=== PATIENT | female | born 1965 | race Caucasian/White ===

== ENCOUNTER 2017-10-29 13:58 | Emergency (ER) | payer OTHER ==
[2017-10-29 14:20] VITALS: TEMP 97.8; BMI 30.7
--- NOTE | 2017-10-29 14:43 | PDOC ---
History of Present Illness - General Chief Complaint: Pain, Acute Stated Complaint: SIDE PAIN/RIGHT LEG PAIN/HEAD PAIN Time Seen by Provider: 10/29/17 14:42 - History of Present Illness Initial Comments: 10/29/17 14:43 Ms. Colon is a 52 yo female w/ pmh of thyroidectomy 2/2 cancer, arthritis, hypothyroidism, hysterectomy, COPD, pacemaker, migraines, chronic back pain, and fibroids who presents for evaluation after she reportedly tripped over the cat and fell down hitting her head on Friday. She reports having increasing head pain since this time that she says is all throughout her head. She also reportedly vomited from the pain yesterday. The patient denies chest pain, shortness of breath, headache and dizziness. Denies fever, chills, diarrhea and constipation. Denies dysuria, frequency, urgency and hematuria. Allergies: Penicillins, Sulfa drugs Past History - Past Medical History Allergies/Adverse Reactions: Allergies Allergy/AdvReac Type Severity Reaction Status Date / Time Penicillins Allergy Severe anaphylaxis Verified 10/29/17 14:15 Sulfa (Sulfonamide Allergy Severe anaphylaxis Verified 10/29/17 14:15 Antibiotics) [Sulfa(Sulfonamide Antibiotics)] Home Medications: Ambulatory Orders Budesonide/Formoterol Fumarate [Symbicort 160-4.5 Mcg Inhaler] 2 inh IN BID Montelukast Na [Singulair -] 10 mg PO HS 12/18/12 Olmesartan/Hydrochlorothiazide [Benicar Hct 20-12.5 mg Tablet] 1 each PO DAILY 12/18/12 Oxycodone HCl/Acetaminophen [Percocet 10-325 mg Tablet] 1 tab PO Q8H PRN #9 tablet 05/14/13 levoFLOXacin [Levaquin -] 500 mg PO DAILY 07/24/13 Alprazolam [Xanax -] 0.5 mg PO TID 07/25/13 Meclizine HCl [Antivert -] 25 mg PO TID PRN 07/25/13 Topiramate [Topamax -] 25 mg PO BID 07/25/13 Acetaminophen/Caffeine/Butalb [Fioricet -] 1 each PO Q6H PRN #12 tablet Cabergoline [Cabergoline] 5 mg PO BID 07/26/13 Levothyroxine [Synthroid -] 224 mcg PO DAILY@0700 #0 tablet 07/26/13 Anemia: No Asthma: Yes Cancer: Yes (THYROID) Cardiac Disorders: Yes (PACEMAKER) CVA: No COPD: Yes CHF: No Dementia: No Diabetes: No GI Disorders: No Disorders: No HTN: Yes Hypercholesterolemia: No Liver Disease: No Seizures: No Thyroid Disease: Yes (H/O THYROID CA,THYROIDECTOMY AND RADIAACTIVE IODINE THERAPY,ON SYNTHROID) Other medical history: SCIATICA - Surgical History Abdominal Surgery: No Appendectomy: No Cardiac Surgery: Yes (pacemaker placement) Cholecystectomy: No Lung Surgery: No Neurologic Surgery: No Orthopedic Surgery: No - Suicide/Smoking/Psychosocial Hx Smoking Status: Yes Smoking History: Current every day smoker Have you smoked in the past 12 months: Yes Number of Cigarettes Smoked Daily: 20 Information on smoking cessation initiated: No 'Breaking Loose' booklet given: 07/25/13 Hx Alcohol Use: No Drug/Substance Use Hx: Yes (none since 04/2013) Substance Use Type: Marijuana Hx Substance Use Treatment: No Review of Systems - Review of Systems Comments:: 10/29/17 14:59 GENERAL/CONSTITUTIONAL: No fever or chills. No weakness. HEAD, EYES, EARS, NOSE AND THROAT: +Headache since fall as described. No change in vision. No ear pain or discharge. No sore throat. CARDIOVASCULAR: No chest pain or shortness of breath RESPIRATORY: No cough, wheezing, or hemoptysis. GASTROINTESTINAL: No nausea, vomiting, diarrhea or constipation. GENITOURINARY: No dysuria, frequency, or change in urination. MUSCULOSKELETAL: +Long standing chronic leg/back pain for which she takes Percocet 10mg's. SKIN: No rash NEUROLOGIC: No headache, vertigo, loss of consciousness, or change in strength/ sensation. ENDOCRINE: No increased thirst. No abnormal weight change HEMATOLOGIC/LYMPHATIC: No anemia, easy bleeding, or history of blood clots. ALLERGIC/IMMUNOLOGIC: No hives or skin allergy. *Physical Exam - Vital Signs Last Vital Signs Temp Pulse Resp BP Pulse Ox 97.8 F 80 19 126/91 97 10/29/17 14:16 10/29/17 14:16 10/29/17 14:16 10/29/17 14:16 10/29/17 14:16 - Physical Exam Comments: 10/29/17 15:01 GENERAL: Awake, alert, and fully oriented, in no acute distress HEAD: No signs of trauma, normocephalic, atraumatic EYES: PERRLA, EOMI, sclera anicteric, conjunctiva clear ENT: Auricles normal inspection, hearing grossly normal, nares patent, oropharynx clear without exudates. Moist mucosa NECK: Normal ROM, supple, no lymphadenopathy, JVD, or masses LUNGS: No distress, speaks full sentences, clear to auscultation bilaterally HEART: Regular rate and rhythm, normal S1 and S2, no murmurs, rubs or gallops, peripheral pulses normal and equal bilaterally. ABDOMEN: Soft, nontender, normoactive bowel sounds. No guarding, no rebound. No masses EXTREMITIES: Normal inspection, Normal range of motion, no edema. No clubbing or cyanosis. NEUROLOGICAL: Cranial nerves II through XII grossly intact. Normal speech, normal gait, no focal sensorimotor deficits SKIN: Warm, Dry, normal turgor, no rashes or lesions noted. Medical Decision Making - Medical Decision Making 10/29/17 15:36 Ms. Colon is a 52 yo female w/ pmh as proscribed who presents for evaluation of headache post fall as described - denies LOC. Upon chart check patient revealed to have a neck CT 2 days ago for neck pain. When questioned about this patient confirmed and reports that she had forgotten the exact dates. 10/29/17 16:49 No focal deficits noted. Head CT ordered to r/o acute injury post fall. 10/29/17 18:[address] negative for acute injury. Oral medication given for possible migraine as patient now relating symptoms to her prior migraines. Discharging patient to home w/ instructions to follow-up as needed for further pain. Migraine prophylaxis / treatment discussed and patient will follow-up with Neurologist for further evaluation. *DC/Admit/Observation/Transfer Diagnosis at time of Disposition: Headache Qualifiers: Headache type: unspecified Headache chronicity pattern: unspecified pattern Intractability: not intractable Qualified Code(s): R51 - Headache - Discharge Dispostion Disposition: HOME - Referrals Referrals: Karl Curry [Primary Care Provider] - Baljinder Yanez MD [Staff Physician] - - Patient Instructions Printed Discharge Instructions: DI for Migraine Additional Instructions: Please return if any increase in pain or pain not controllable with over the counter medications. Follow-up with neurology as discussed for further evaluation. If you are unable to get in contact with them, please use attached information to contact Dr. Yanez as needed. - Post Discharge Activity
--- NOTE | 2017-10-29 14:47 | PDOC ---
Attending Attestation - HPI HPI: 10/29/17 16:04 The patient is a 52 year old female with history of thyroid CA s/p thyroidectomy , s/p pacemaker, COPD, who presents to the ED complaining of 2 days of diffuse headache s/p fall. She states she fell 2 days ago and has had persistent pain since then wih one episode of vomiting 2 days ago. Documentation prepared by Tamar Martinez, acting as phlebotomist medical lab assistant for Andre Lazaro MD. <Tamar Martinez - Last Filed: 10/29/17 16:12> - Resident Resident Name: Tha Saenz - ED Attending Attestation I have performed the following: I have examined & evaluated the patient, The case was reviewed & discussed with the resident, I agree w/resident's findings & plan, Exceptions are as noted - Physicial Exam PE: 10/29/17 16:48 Patient is awake and alert, afebrile, nontoxic appearing Normocephalic, atraumatic PERRLA, EOMI cta rrr No focal neurological deficits Gait-stable - Medical Decision Making 10/29/17 16:49 Patient is a 52-year-old female with multiple comorbidities, chronic pain syndrome, who presents with a headache status post fall 3 days previously. patient denies LOC. In the ER, patient is hemodynamically stable, nontoxic appearing, without focal neurological deficits. Will obtain CT of head to rule out intracranial pathology. If no acute issues, we'll discharge. <Andre Lazaro - Last Filed: 10/29/17 16:50>
[2017-10-29] MEDS ORDERED: ACETAMINOPHEN 500 MG TABLET (FP) PO ONE (15:35)
[2017-10-29] MEDS ORDERED: METOCLOPRAMIDE HCL 10 MG TABLET (FP) PO ONE (18:30)
[2017-10-29 18:58] VITALS: BP 122/58; PULSE 75
== END 2017-10-29 18:58 | disposition home or self-care (01) ==
LOC: JER 13:58
DX: R51 Headache (principal); W01.0XXA Fall on same level from slipping, tripping and stumbling without subsequent striking against object, initial encounter; Y93.K1 Activity, walking an animal; Y92.410 Unspecified street and highway as the place of occurrence of the external cause
CPT/HCPCS: 70450-TC; 84703; 99281-25

== ENCOUNTER 2021-10-24 10:46 | Inpatient (IN) | payer OTHER ==
[2021-10-24 14:19] LABS: EOS % 5.6 % (0-4.5); HEMATOCRIT 41.7 % (32.4-45.2); HEMOGLOBIN 13.7 GM/dL (10.7-15.3); LYMPH % 44.1 % (8-40); MCH 29.4 pg (25.7-33.7); MCHC 32.8 g/dl (32.0-36.0); MEAN CELL VOLUME 89.6 fl (80-96); MEAN PLT VOLUME 7.7 fl (7.5-11.1); MONO % 7.3 % (3.8-10.2); PLATELET COUNT 259 10^3/uL (134-434); RBC 4.65 M/mm3 (3.60-5.2); RDW 15.1 % (11.6-15.6); WHITE BLOOD COUNT 5.6 K/mm3 (4.0-10.0)
[2021-10-24 14:46] LABS: EPI CELLS 12 /uL (0-25.1); HYALINE CASTS 1 /uL (0-3.1); PH,URINE 7.5 (5.0-8.0); URINE APPEARANCE CLOUDY; URINE BACTERIA >9,000 /uL (0-1359); URINE BILIRUBIN NEGATIVE (NEGATIVE); URINE COLOR YELLOW; URINE GLUCOSE (UA) NEGATIVE (NEGATIVE); URINE KETONE NEGATIVE (NEGATIVE); URINE LEUK ESTERASE 3+ (NEGATIVE); URINE NITRITE NEGATIVE (NEGATIVE); URINE PROTEIN NEGATIVE (NEGATIVE); URINE RBC 17 /uL (0-23.9); URINE UROBILINOGEN 0.2 mg/dL (0.2-1.0); URINE WBC 1325 /uL (0-25.8)
[2021-10-24 14:55] LABS: BLOOD UREA NITROGEN 11.9 mg/dL (7-18); CALCIUM 9.6 mg/dL (8.5-10.1)
[2021-10-24 14:56] LABS: ALBUMIN 3.9 g/dl (3.4-5.0); MAGNESIUM 2.2 mg/dL (1.8-2.4)
[2021-10-24 14:58] LABS: CREATININE 0.6 mg/dL (0.55-1.3)
[2021-10-24 15:00] LABS: TOT PROT 7.2 g/dl (6.4-8.2)
[2021-10-24 15:03] LABS: BILIRUBIN,TOTAL 0.3 mg/dL (0.2-1)
[2021-10-24 15:04] LABS: N-TERMINAL BNP 86.9 pg/ml (5-125)
[2021-10-24] MEDS ORDERED: ACETAMINOPHEN 1000 MG/100 ML BAG IVPB ONE (21:52)
[2021-10-24] MEDS ORDERED: ACETAMINOPHEN INJECTION 100 ML IVPB ONE (22:07)
[2021-10-24] MEDS ORDERED: ATORVASTATIN CA 20 MG TABLET (FP) ONE (22:24)
[2021-10-24] MEDS ORDERED: SENNOSIDES 8.6MG TABLET (FP) PO ONE (22:24)
[2021-10-24] MEDS ORDERED: HEPARIN NA (PORCINE) 5,000 UNITS/ML 1ML VIAL ONE (22:25)
[2021-10-24] MEDS ORDERED: MONTELUKAST NA 10 MG TABLET ONE (22:25)
[2021-10-24] MEDS: ARTIFICIAL TEARS (POLYVINYL ALCOHOL) OPTH DROPS OU SCH (22:49)
[2021-10-24] MEDS: SENNOSIDES 8.6MG TABLET (FP) PO SCH (22:49)
[2021-10-24] MEDS: HEPARIN NA (PORCINE) 5,000 UNITS/ML 1ML VIAL SQ SCH (22:49)
[2021-10-24] MEDS: MONTELUKAST NA 10 MG TABLET PO SCH (22:50)
[2021-10-24] MEDS: BUDESONIDE/FORMETEROL FUMARATE 160/4.5 mcg INHALER IH SCH (22:50)
[2021-10-24] MEDS: ATORVASTATIN CA 20 MG TABLET (FP) PO SCH (22:55)
[2021-10-25] MEDS: ARTIFICIAL TEARS (POLYVINYL ALCOHOL) OPTH DROPS OU SCH ×6 (00:26→21:12)
[2021-10-25 05:44] LABS: BASO % 0.9 % (0-2.0); EOS % 5.2 % (0-4.5); HEMATOCRIT 38.7 % (32.4-45.2); HEMOGLOBIN 13.1 GM/dL (10.7-15.3); LYMPH % 44.8 % (8-40); MCHC 33.9 g/dl (32.0-36.0); MEAN CELL VOLUME 88.5 fl (80-96); MEAN PLT VOLUME 7.5 fl (7.5-11.1); MONO % 8.1 % (3.8-10.2); PLATELET COUNT 228 10^3/uL (134-434); RBC 4.37 M/mm3 (3.60-5.2); RDW 14.9 % (11.6-15.6); WHITE BLOOD COUNT 5.8 K/mm3 (4.0-10.0)
[2021-10-25 05:59] LABS: CALCIUM 8.8 mg/dL (8.5-10.1)
[2021-10-25 06:00] LABS: ALBUMIN 3.5 g/dl (3.4-5.0); BLOOD UREA NITROGEN 13.3 mg/dL (7-18); MAGNESIUM 1.8 mg/dL (1.8-2.4)
[2021-10-25 06:03] LABS: BILIRUBIN,TOTAL 0.3 mg/dL (0.2-1); CREATININE 0.8 mg/dL (0.55-1.3); TOT PROT 6.6 g/dl (6.4-8.2)
[2021-10-25 09:14] VITALS: BMI 36.2
[2021-10-25] MEDS ORDERED: DULoxetine HCL 30 MG CAPSULE.DR PO ONE (09:16)
[2021-10-25] MEDS: ACETAMINOPHEN 1000 MG/100 ML BAG IVPB PRN ×2 (09:35→21:03)
[2021-10-25] MEDS: PANTOPRAZOLE 40 MG TABLET PO SCH (09:39)
[2021-10-25] MEDS: amLODIPine BESYLATE 5 MG TABLET (FP) PO SCH (09:39)
[2021-10-25] MEDS: DULoxetine HCL 60 MG CAPSULE.DR PO SCH (09:40)
[2021-10-25] MEDS: SENNOSIDES 8.6MG TABLET (FP) PO SCH ×2 (09:40→21:13)
[2021-10-25] MEDS: MAGNESIUM OXIDE 400 MG TABLET (FP) PO SCH (09:40)
[2021-10-25] MEDS: LOSARTAN POTASSIUM 50 MG TABLET PO SCH (09:40)
[2021-10-25] MEDS: HEPARIN NA (PORCINE) 5,000 UNITS/ML 1ML VIAL SQ SCH ×2 (09:41→21:02)
[2021-10-25] MEDS: BUDESONIDE/FORMETEROL FUMARATE 160/4.5 mcg INHALER IH SCH ×2 (09:41→21:13)
[2021-10-25] MEDS: ASPIRIN 81 MG CHEWABLE TABLETS PO SCH (09:41)
[2021-10-25] MEDS: clonazePAM 0.5 MG TABLET PO PRN ×2 (13:48→21:14)
[2021-10-25] MEDS: lamoTRIgine 100 MG TABLET PO SCH (14:14)
[2021-10-25] MEDS: ATORVASTATIN CA 20 MG TABLET (FP) PO SCH (21:13)
[2021-10-25] MEDS: MONTELUKAST NA 10 MG TABLET PO SCH (21:13)
[2021-10-25] MEDS ORDERED: MELATONIN 1 MG TABLET PO ONE (22:30)
[2021-10-26] MEDS: ARTIFICIAL TEARS (POLYVINYL ALCOHOL) OPTH DROPS OU SCH ×3 (05:58→14:24)
[2021-10-26] MEDS ORDERED: LEVOTHYROXINE NA 75 MCG TABLET (FP) ONE (06:41)
[2021-10-26] MEDS ORDERED: LEVOTHYROXINE NA 100 MCG TABLET (FP) ONE (06:41)
[2021-10-26] MEDS ORDERED: LEVOTHYROXINE NA 100 MCG TABLET (FP) PO SCH (07:00)
[2021-10-26] MEDS ORDERED: LEVOTHYROXINE 100 MCG, LEVOTHYROXINE 75 MCG PO SCH (07:00)
[2021-10-26] MEDS ORDERED: DULoxetine HCL 30 MG CAPSULE.DR PO ONE (08:40)
[2021-10-26] MEDS: LOSARTAN POTASSIUM 50 MG TABLET PO SCH (09:19)
[2021-10-26] MEDS: PANTOPRAZOLE 40 MG TABLET PO SCH (09:19)
[2021-10-26] MEDS: BUDESONIDE/FORMETEROL FUMARATE 160/4.5 mcg INHALER IH SCH (09:19)
[2021-10-26] MEDS: MAGNESIUM OXIDE 400 MG TABLET (FP) PO SCH (09:20)
[2021-10-26] MEDS: DULoxetine HCL 60 MG CAPSULE.DR PO SCH (09:20)
[2021-10-26] MEDS: SENNOSIDES 8.6MG TABLET (FP) PO SCH (09:20)
[2021-10-26] MEDS: amLODIPine BESYLATE 5 MG TABLET (FP) PO SCH (09:20)
[2021-10-26] MEDS: ASPIRIN 81 MG CHEWABLE TABLETS PO SCH (09:20)
[2021-10-26] MEDS: HEPARIN NA (PORCINE) 5,000 UNITS/ML 1ML VIAL SQ SCH (09:21)
[2021-10-26] MEDS: clonazePAM 0.5 MG TABLET PO PRN (09:43)
[2021-10-26] MEDS: lamoTRIgine 100 MG TABLET PO SCH (10:30)
[2021-10-26] MEDS ORDERED: ACETAMINOPHEN 500 MG TABLET (FP) PO PRN (13:30)
[2021-10-26 18:35] VITALS: BP 131/77; PULSE 72; TEMP 98.2
[2021-10-26] MEDS ORDERED: MELATONIN 1 MG TABLET PO ONE (22:08)
== END 2021-10-26 18:40 | disposition home health service (06) | DRG 463 ==
LOC: JER 10:46 → J8W 15:21
PROVIDERS: ADMIT Family Medicine; ATTEND Family Medicine
DX: N39.0 Urinary tract infection, site not specified (principal); E03.9 Hypothyroidism, unspecified; J44.9 Chronic obstructive pulmonary disease, unspecified; F41.8 Other specified anxiety disorders; I10 Essential (primary) hypertension; F41.9 Anxiety disorder, unspecified; F17.200 Nicotine dependence, unspecified, uncomplicated; R26.81 Unsteadiness on feet; F31.89 Other bipolar disorder; M51.37 Other intervertebral disc degeneration, lumbosacral region; R29.6 Repeated falls; G20 Parkinson's disease; B96.1 Klebsiella pneumoniae [K. pneumoniae] as the cause of diseases classified elsewhere; K21.9 Gastro-esophageal reflux disease without esophagitis; Z85.850 Personal history of malignant neoplasm of thyroid; Z95.0 Presence of cardiac pacemaker; Z88.0 Allergy status to penicillin
CPT/HCPCS: 36415; 70450-TC; 71045-TC-FY; 72131-TC; 73521-TC-FY; 78452-TC; 80053; 81003; 82550; 82962; 83735; 83880; 84436; 84439; 84443; 84484; 85025; 87040; 87086; 87186; 93005; 93010; 93017; 97116-GP; 97161-GP; 99285-25; A9502; C1887; C9803; J1644; J2785; U0003; U0005

== ENCOUNTER 2022-01-07 17:39 | Emergency (ER) | payer OTHER ==
[2022-01-07 18:16] VITALS: BP 106/77; PULSE 74; BMI 36.1
[2022-01-07] MEDS ORDERED: KETOROLAC TROMETHAMINE 30 MG/1 ML VIAL IM ONE (19:36)
[2022-01-07] MEDS ORDERED: METHOCARBAMOL 500 MG TABLET PO ONE (19:36)
[2022-01-07] MEDS ORDERED: METHOCARBAMOL 500 MG TABLET ONE (19:40)
[2022-01-07] MEDS ORDERED: KETOROLAC TROMETHAMINE 30 MG/1 ML VIAL ONE (19:41)
== END 2022-01-07 19:56 | disposition home or self-care (01) ==
LOC: JERFT 17:39
PROC: 3E0233Z Introduction of Anti-inflammatory into Muscle, Percutaneous Approach (ICD-10-PCS; principal; 2022-01-07)
DX: M25.521 Pain in right elbow (principal); M25.552 Pain in left hip; M79.605 Pain in left leg; W01.0XXA Fall on same level from slipping, tripping and stumbling without subsequent striking against object, initial encounter
CPT/HCPCS: 72170-TC-FY; 73070-TC-RT-FY; 73502-TC-LT-FY; 99285-25

== ENCOUNTER 2023-12-15 04:14 | Day surgery (SDC) | payer OTHER ==
[2023-12-10 17:59] VITALS: BMI 36.1
[2023-12-15 09:26] VITALS: RESP 18
[2023-12-15] MEDS ORDERED: FENTANYL CITRATE/PF 50 MCG/ML VIAL ONE ×2 (11:01→11:17)
[2023-12-15] MEDS ORDERED: MIDAZOLAM HCL 2 MG/2 ML SINGLE DOSE VIAL ONE (11:01)
[2023-12-15] MEDS ORDERED: ONDANSETRON 4 MG/2 ML VIAL ONE (11:01)
[2023-12-15 11:56] VITALS: TEMP 97.5
[2023-12-15 12:41] VITALS: BP 118/70; PULSE 70
== END 2023-12-15 12:45 | disposition home or self-care (01) ==
LOC: JASU-SURG 04:14
PROVIDERS: ATTEND Urology
PROC: 0TF3XZZ Fragmentation in Right Kidney Pelvis, External Approach (ICD-10-PCS; principal; 2023-12-15 11:00)
DX: N20.0 Calculus of kidney (principal)
CPT/HCPCS: 82962